=== PATIENT | female | born 1940 | race Caucasian/White ===

== ENCOUNTER 2016-12-20 08:51 | Outpatient (CLI) | payer MEDICARE | END 2016-12-20 08:52 | disposition home or self-care (01) | DX: Z12.31 Encounter for screening mammogram for malignant neoplasm of breast (principal); Z80.3 Family history of malignant neoplasm of breast ==

== ENCOUNTER 2016-12-20 08:56 | Outpatient (CLI) | payer MEDICARE, OTHER | END 2016-12-20 08:57 | disposition home or self-care (01) | DX: M85.89 Other specified disorders of bone density and structure, multiple sites (principal) ==

== ENCOUNTER 2019-04-09 08:16 | Outpatient (CLI) | payer MEDICARE, OTHER ==
--- NOTE | 2019-04-09 13:22 | Mammography Report ---
Reason: SCREENING MAMMO Procedure Date: 04/09/2019 Accession Number: [id number] / [id number] Procedure: DEEP - Screening Mammo w/Brennen CPT Code: FULL RESULT: EXAM: Screening Mammo w/Brennen DATE: 04/09/2019 8:53 AM CLINICAL HISTORY: Routine screening. No reported personal history of breast cancer. Family history breast cancer in mother at age 90. TECHNIQUE: (B) - Bilateral CC and MLO views were obtained. COMPARISON: 12/20/2016 PARENCHYMAL PATTERN: (A) - The breasts demonstrate scattered fibroglandular densities bilaterally. FINDINGS: Right breast: Stable oval mass with circumscribed margins noted in the medial breast. There are no suspicious masses, calcifications, or areas of distortion. Left breast: There are multiple similar-appearing round and oval circumscribed margin benign-appearing masses in the breast. In the 9:00 breast 5 cm from the nipple, there is a new 8 mm oval mass with circumscribed margins. No suspicious calcifications or areas of distortion. IMPRESSION: Right breast: Benign. BI-RADS Category 2. Recommend annual screening mammography. Left breast: New 8 mm oval mass 9:00 breast 5 cm from the nipple. Incomplete examination. BI-RADS category 0. Targeted ultrasound is recommended. RECOMMENDATION: (ADDUS) - Targeted ultrasound recommended. BI-RADS CATEGORY: (0) - Incomplete Examination - need additional evaluation. STANDARD QUALIFYING STATEMENTS: 1. This examination was not reviewed with the aid of Computer-Aided Detection (CAD). 2. A negative or benign imaging report should not preclude biopsy if clinically suspicious findings are present. 3. Dense breasts may obscure an underlying neoplasm. 4. This examination was reviewed with the aid of 3D breast imaging (tomosynthesis).
== END 2019-04-09 08:17 | disposition home or self-care (01) ==
LOC: DI 08:16
DX: Z12.31 Encounter for screening mammogram for malignant neoplasm of breast (principal); R92.8 Other abnormal and inconclusive findings on diagnostic imaging of breast; Z80.3 Family history of malignant neoplasm of breast
CPT/HCPCS: 77063; 77067

== ENCOUNTER 2019-04-09 08:17 | Outpatient (CLI) | payer MEDICARE, OTHER ==
--- NOTE | 2019-04-09 11:31 | MRI Report ---
Reason: SYNCOPE Procedure Date: 04/09/2019 Accession Number: [id number] / [id number] Procedure: MRI - Brain W/O CPT Code: FULL RESULT: EXAM: MRI BRAIN WITHOUT CONTRAST EXAM DATE: 04/09/2019 09:53 AM. CLINICAL HISTORY: Syncope. COMPARISON: None. TECHNIQUE: Multiplanar, multisequence T1-weighted and fluid-sensitive MR sequences of the brain were performed. Sequences optimized for routine evaluation. Other: None. IV Contrast: None. FINDINGS: Brain Volume: Normal for age. Parenchyma/Dura: No mass, acute infarct or hemorrhage. Mild confluent periventricular with patchy deep and subcortical white matter T2/FLAIR bright signal is seen in the cerebral hemispheres. Minimal involvement of the brainstem is noted. Small irregular similar-appearing focus is seen laterally in the left thalamus. No cortical signal abnormality. Ventricles/Cisterns: No hydrocephalus. No abnormal extra-axial fluid collection or hemorrhage. Orbits: Unremarkable. Note is made of bilateral lens removal. Sella Turcica: The pituitary gland, cavernous sinuses, suprasellar cistern and optic chiasm are unremarkable. IAC: Symmetric and unremarkable. Vasculature: Normal signal flow void is seen in the major arterial structures at the skull base. Sinuses: Partial opacification is seen throughout right mastoid air cells. Mucosal thickening is seen involving inferior and posterolateral left mastoid air cells. The visualized paranasal sinuses are clear. Bones: No focal pathologic appearing marrow signal changes. Mild degenerative change is noted in the TMJ bilaterally. Other: Partially visualized nasopharynx and infratemporal fossa are unremarkable. IMPRESSION: 1. Negative noncontrast MRI of the brain. No acute abnormality. No infarct, mass, or hemorrhage. 2. Mild white matter T2/FLAIR bright signal is seen in the cerebral hemispheres and brainstem. This is nonspecific. This can be seen secondary to small vessel ischemic change. Similar-appearing focus of signal abnormality is noted laterally in the left thalamus which may represent sequela of old infarct. 3. Opacification is seen throughout right mastoid air cells as well as inferior and peripheral left mastoid air cells. RADIA
== END 2019-04-09 08:18 | disposition home or self-care (01) ==
LOC: DI 08:17 → RT 08:18
PROVIDERS: ATTEND Physician Assistant
DX: R55 Syncope and collapse (principal)
CPT/HCPCS: 70551; 93005

== ENCOUNTER 2019-04-16 13:44 | Outpatient (CLI) | payer MEDICARE, OTHER ==
--- NOTE | 2019-04-17 08:49 | Ultrasound Report ---
Reason: ABNORMAL MAMMOGRAM Procedure Date: 04/16/2019 Accession Number: [id number] / [id number] Procedure: US - Breast Unilateral Limited CPT Code: FULL RESULT: EXAM: Breast Unilateral Limited DATE: 04/16/2019 4:19 PM CLINICAL HISTORY: Diagnostic breast ultrasound. The patient is recalled from screening mammogram for a left breast mass. COMPARISON: 04/09/2019 and 12/20/2016. TECHNIQUE: Targeted ultrasound was performed of the left breast in the area of clinical concern at 9 o'clock and 5 cm distance from the nipple. Color Doppler was employed as appropriate. FINDINGS: A typically benign appearing thinly septated cyst measuring up to 0.5 x 0.5 x 3.6 cm is identified at the 10:00 position 4 cm from the nipple. The finding is wider than tall and demonstrates no definite soft tissue component. No other masses or architectural distortion are identified including the 9:00 region 5 cm from the nipple. No suspicious findings are made. IMPRESSION: Benign findings RECOMMENDATION: Recommend routine annual Screening mammography unless otherwise clinically indicated. BIRADS CATEGORY 2: Benign findings RADIA
== END 2019-04-16 13:45 | disposition home or self-care (01) ==
LOC: DI 13:44
PROVIDERS: ATTEND Physician Assistant
DX: R92.2 Inconclusive mammogram (principal); N63.20 Unspecified lump in the left breast, unspecified quadrant
CPT/HCPCS: 76642

== ENCOUNTER 2019-05-09 07:45 | Outpatient (CLI) | payer MEDICARE, OTHER | END 2019-05-09 07:46 | disposition home or self-care (01) | LOC: DI 07:45 | PROVIDERS: ATTEND Internal Medicine Cardiovascular Disease | DX: R55 Syncope and collapse (principal) | CPT/HCPCS: 93306 ==

== ENCOUNTER 2021-12-10 08:00 | Outpatient (CLI) | payer MEDICARE, OTHER ==
[2021-12-10 20:17] LABS: BILIRUBIN,URINE NEGATIVE (NEGATIVE); GLUCOSE, URINE (UA) NEGATIVE (NEGATIVE); KETONES,URINE (UA) NEGATIVE (NEGATIVE); LEUKOCYTE ESTERASE, URINE NEGATIVE (NEGATIVE); NITRITE,URINE NEGATIVE (NEGATIVE); OCCULT BLOOD,URINE TRACE-LYSE (NEGATIVE); PROTEIN,URINE NEGATIVE (NEGATIVE); UROBILINOGEN,URINE 0.2 (NORMAL) E.U./dL (NORMAL)
[2021-12-10 20:19] LABS: CLARITY,URINE CLEAR (CLEAR)
[2021-12-10 20:25] LABS: BACTERIA,URINE None Seen /HPF (None Seen); RBC,URINE 0-5 /HPF (0-5); SQUAMOUS EPITHELIAL CELL,UR RARE Squamous (<= Few); WBC,URINE 0-3 /HPF (0-5)
== END 2021-12-10 23:59 | disposition home or self-care (01) ==
LOC: LAB.S 08:00
PROVIDERS: ATTEND Emergency Medicine
DX: R30.0 Dysuria (principal)
CPT/HCPCS: 81001; 87086

== ENCOUNTER 2022-02-02 15:17 | Outpatient (CLI) | payer MEDICARE, OTHER | END 2022-02-02 15:18 | disposition home or self-care (01) | LOC: DI 15:17 | PROVIDERS: ATTEND Internal Medicine Cardiovascular Disease | DX: R93.89 Abnormal findings on diagnostic imaging of other specified body structures (principal) | CPT/HCPCS: 93306 ==

== ENCOUNTER 2022-06-08 09:04 | Outpatient (CLI) | payer MEDICARE, OTHER ==
[2022-06-08 15:12] LABS: CHOL/HDL RATIO 2.9 (<4.4); CHOLESTEROL 230 mg/dL; HDL CHOLESTEROL 79 mg/dL; LDL CHOLESTEROL,CALCULATED 140 mg/dL; LDL/HDL RATIO 1.8 (<4.4); TRIGLYCERIDES 55 mg/dL; VLDL CHOLESTEROL 11 mg/dL
[2022-06-08 19:54] LABS: ESTIMATED AVERAGE GLUCOSE 108 mg/dL (70-100); HEMOGLOBIN A1c% 5.4 % (4.27-6.07)
== END 2022-06-08 09:05 | disposition home or self-care (01) ==
LOC: LAB.S 09:04
PROVIDERS: ATTEND Family Medicine
DX: E78.5 Hyperlipidemia, unspecified (principal); Z13.1 Encounter for screening for diabetes mellitus
CPT/HCPCS: 36415; 80061; 83036; 83721

== ENCOUNTER 2022-06-29 10:48 | Outpatient (CLI) | payer MEDICARE, OTHER ==
--- NOTE | 2022-06-29 17:04 | DEXA Report ---
PROCEDURE: Dexa Spine and/or Hip INDICATIONS: OSTEOPOROSIS TECHNIQUE: Dual energy x-ray absorptiometry (DXA) was performed on a NV Self Representation Document Preparation System. Regions measur ed are the AP Spine, femoral neck, and if needed forearm. COMPARISON: DEXA, 12/20/2016. FINDINGS: Lumbar Spine: Bone Mineral Density 0.877 g/cm/cm,T score -2.5, osteoporosis Left Hip: Bone Mineral Density 0.744 g/cm/cm,T score -2.1, osteopenia Left Femoral Neck: Bone Mineral Density 0.677 g/cm/cm, T score -2.6, osteoporosis (T score greater or equal to -1.0: NORMAL) (T score from -1.1 to -2.4: OSTEOPENIA) (T score less than or equal to -2.5 to: OSTEOPOROSIS) Impression: Based on WHO criteria, the patient has osteoporosis. Compared to the prior exam dated 12/20/2016, the patient's bone mineral density in lumbar spine and left hip has declined. Patients with diagnosis of osteoporosis or osteopenia should have regular bone mineral density assess ment. For those eligible for Medicare, routine testing is allowed once every 2 years. Testing frequ ency can be increased for patients who have rapidly progressing disease or for those who are receivin g medical therapy to restore bone mass. Reviewed by: Ryan Yates MD on 06/29/2022 5:03 PM PST Approved by: Ryan Yates MD on 06/29/2022 5:03 PM PST Station ID: [id number]
== END 2022-06-29 10:49 | disposition home or self-care (01) ==
LOC: DI 10:48
PROVIDERS: ATTEND Family Medicine
DX: Z13.820 Encounter for screening for osteoporosis (principal); M81.0 Age-related osteoporosis without current pathological fracture

== ENCOUNTER 2022-06-29 10:50 | Outpatient (CLI) | payer MEDICARE, OTHER ==
--- NOTE | 2022-06-30 16:42 | Mammography Report ---
BILATERAL DIGITAL SCREENING MAMMOGRAM 3D/2D: 06/29/2022 CLINICAL: Routine screening. Comparison is made to exams dated: 04/09/2019 mammogram, [facility], and 09/16/[facility] mammogram - [facility] [place]. There are scattered areas of fibroglandular density in both breasts (category b / 25%-50% glandular t issue). There is a possible developing 0.6 cm oval high density focal asymmetry in the right breast at 4 o'cl ock middle depth. This is more prominent. No other significant masses, calcifications, or other findings are seen in either breast. IMPRESSION: INCOMPLETE: NEEDS ADDITIONAL IMAGING EVALUATION The possible developing 0.6 cm oval high density focal asymmetry in the right breast is indeterminate . Additional views with possible ultrasound are recommended. Based on the Tyrer Cuzick model (a risk assessment model) the patients lifetime risk is 0.7% and her 10 year risk is 0.0%. According to the ACR, ACS, and NCCN guidelines, an annual breast MRI exam renata g with mammogram is recommended if the patients lifetime risk is 20% or greater. This exam was interpreted at Station ID: [id number]. NOTE: For mammograms, a report in lay terms will be sent to the patient. Approximately 15% of breast malignancies will not be visualized mammographically. In the management of a palpable breast mass, a negative mammogram must not discourage biopsy of a clinically suspicious lesion. Electronically Signed By: Momo Aragon M.D. aty/:06/29/2022 16:27:43 ACR BI-RADS Category 0: Incomplete 3340F PARENCHYMAL PATTERN: (A) - The breast(s) demonstrate(s) scattered fibroglandular densities. BI-RADS CATEGORY: (0) - 0 Mammo and [place] [id number] Immediate follow-up LATERALITY: (R)
== END 2022-06-29 10:51 | disposition home or self-care (01) ==
LOC: DI 10:50
PROVIDERS: ATTEND Family Medicine
DX: Z12.31 Encounter for screening mammogram for malignant neoplasm of breast (principal); Z80.3 Family history of malignant neoplasm of breast

== ENCOUNTER 2022-07-20 10:26 | Outpatient (CLI) | payer MEDICARE, OTHER ==
--- NOTE | 2022-07-21 10:57 | Mammography Report ---
UNILATERAL RIGHT DIGITAL DIAGNOSTIC MAMMOGRAM 3D/2D: 07/20/2022 CLINICAL: Patient returns today to evaluate a focal asymmetry in the right breast. Comparison is made to exams dated: 06/29/2022 mammogram, 04/09/2019 mammogram, 12/20/2016 mammogram - [facility], and 09/16/2014 mammogram - [facility]. There are scattered areas of fibroglandular density in the right breast (category b / 25%-50% glandul ar tissue). There is a 0.9 cm oval equal density focal asymmetry with a circumscribed margin in the right breast at 4 o'clock middle depth. This is seen in additional views. This finding has been present on mult iple prior mammograms with a slightly varying appearance over time. No other significant masses or calcifications are seen in the breast. IMPRESSION: INCOMPLETE: NEEDS ADDITIONAL IMAGING EVALUATION The 0.9 cm oval equal density focal asymmetry in the right breast resembles a cyst or a lymph node an d is indeterminate. An ultrasound is recommended. Based on the Tyrer Cuzick model (a risk assessment model) the patients lifetime risk is 0.7% and her 10 year risk is 0.0%. According to the ACR, ACS, and NCCN guidelines, an annual breast MRI exam renata g with mammogram is recommended if the patients lifetime risk is 20% or greater. This exam was interpreted at Station ID: [id number]. NOTE: For mammograms, a report in lay terms will be sent to the patient. Approximately 15% of breast malignancies will not be visualized mammographically. In the management of a palpable breast mass, a negative mammogram must not discourage biopsy of a clinically suspicious lesion. Electronically Signed By: Garret russo/russell:07/20/2022 13:46:33 ACR BI-RADS Category 0: Incomplete 3340F PARENCHYMAL PATTERN: (A) - The breast(s) demonstrate(s) scattered fibroglandular densities. BI-RADS CATEGORY: (0) - 0 Ultrasound [id number] Immediate follow-up LATERALITY: (R)
--- NOTE | 2022-07-21 10:57 | Ultrasound Report ---
LIMITED ULTRASOUND OF RIGHT BREAST: 07/20/2022 CLINICAL: Patient returns today to evaluate a focal asymmetry in the right breast. Comparison is made to exams dated: 07/20/2022 mammogram, 06/29/2022 mammogram, 04/09/2019 mammogram, mammogram - [facility], and 09/[facility]. Color flow ultrasound of the right breast 4-5 o'clock region was performed. Serrano scale images of the real-time examination were reviewed. There is a benign 0.9 cm x 0.9 cm x 0.3 cm oval lymph node with a circumscribed margin in the right b reast at 4 o'clock middle depth 5 cm from the nipple. This oval lymph node is hypoechoic with fatty hilum. This correlates with mammography findings. Color flow imaging demonstrates that there is vas cularity present. IMPRESSION: BENIGN There is no sonographic evidence of malignancy. The 0.9 cm x 0.9 cm x 0.3 cm oval lymph node in the right breast is benign. Return to annual mammogram screening schedule is recommended. This exam was interpreted at Station ID: [id number]. Electronically Signed By: Garret russo/russell:07/20/2022 13:47:54 Ultrasound BI-RADS: 2 Benign BI-RADS CATEGORY: (2) - 2 Mammogram [id number] return to screening LATERALITY: (B)
== END 2022-07-20 10:27 | disposition home or self-care (01) ==
LOC: DI 10:26
PROVIDERS: ATTEND Family Medicine
DX: R92.8 Other abnormal and inconclusive findings on diagnostic imaging of breast (principal)

== ENCOUNTER 2022-08-26 17:35 | Emergency (ER) | payer MEDICARE, OTHER ==
--- NOTE | 2022-08-26 18:05 | ED Physician Documentation ---
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 Today after sitting in the car all day she developed some left calf pain which is mild at rest but hurts with walking. Denies chest pain or trouble breathing. Last year she was on Xarelto for 3 months and tolerated it well. Review of Systems Constitutional: reports: Reviewed and negative Eyes: reports: Reviewed and negative Nose: reports: Reviewed and negative Cardiac: reports: Reviewed and negative PD PAST MEDICAL HISTORY - Allergies Allergies/Adverse Reactions: Allergies Allergy/AdvReac Type Severity Reaction Status Date / Time codeine Allergy Nausea Verified 08/26/22 17:44 PD ED PE NORMAL - Vitals Vital signs reviewed: Yes - General General: Alert and oriented X 3, No acute distress - Extremities Extremities: Other (No asymmetry or swelling of the left calf, no tenderness, negative Homans' sign. Normal pedal pulses.) - Neuro Neuro: Alert and oriented X 3, Normal speech - Psych Psych: Normal mood, Normal affect Results - Vitals Vitals: Vital Signs - 24 hr 08/26/22 08/26/22 17:39 19:19 Temperature 36.5 C Heart Rate 81 84 Respiratory 14 16 Rate Blood Pressure 136/77 H 145/83 H O2 Saturation 97 98 Oxygen O2 Source Room air - Rads (name of study) Left lower extremity DvT ultrasound was negative Radiology: Final report received, EMP read indepedently PD Medical Decision Making - ED course ED course: 82-year-old woman presents with left leg pain after sitting in the car all day. She has a history of thromboembolic disease and is of course worried about DVT are we but an ultrasound was negative. Departure - Departure Disposition: 01 Home, Self Care Clinical Impression: Pain in extremity Qualifiers: Extremity pain location: lower extremity Laterality: left Qualified Code(s): M79.605 - Pain in left leg Condition: Good Record reviewed to determine appropriate education?: Yes Instructions: ED Acute Pain UKO Comments: Your ultrasound today is negative. Suggesting that the pain might be from s itting in the car all day we hope, that said if you have persistent pain in a week follow-up with your doctor for repeat ultrasound. Return sooner if worse. Discharge Date/Time: 08/26/22 19:20
--- NOTE | 2022-08-26 19:06 | Ultrasound Report ---
PROCEDURE: Duplex Ext Veins Left INDICATIONS: lle pain TECHNIQUE: Real-time imaging, as well as color and pulse Doppler interrogation, were performed of the lower extr emity deep veins from the inguinal ligament to the popliteal fossa. COMPARISON: None. FINDINGS: The deep veins are normally compressible, and free of intraluminal thrombus. Color and pu lse Doppler demonstrate normal phasic intraluminal flow. There is normal augmentation response to di stal compression maneuver. IMPRESSION: No sonographic evidence of DVT in the left lower extremity. Reviewed by: Mega Colin MD on 08/26/2022 7:05 PM PST Approved by: Mega Colin MD on 08/26/2022 7:05 PM PST Station ID: [id number]
[2022-08-26 19:20] VITALS: BP 145/83
== END 2022-08-26 19:20 | disposition home or self-care (01) ==
LOC: SUPCPDRO 17:35 → ED 17:35
DX: M79.605 Pain in left leg (principal); Z86.711 Personal history of pulmonary embolism
CPT/HCPCS: 99283; 99284